=== PATIENT | female | born 1975 | race Hispanic/Latino ===

== ENCOUNTER 2017-07-09 09:34 | Outpatient (CLI) | payer OTHER ==
--- NOTE | 2017-07-09 11:56 | MRI ---
MRI LUMBAR SPINE NONCONTRAST: HISTORY: Low back pain. Radiculopathy. FINDINGS: The conus medullaris has a normal appearance. Bone marrow signal and vertebral body heights are main tained. There is desiccation of the lowest 2 intervertebral disks. T12-L1, L1-2, L2-3, L3-4: Thecal sac is patent. Neural foramina are within normal limits. L4-5: Diffuse posterior disk bulge is present. Thecal sac and neural foramen remain patent. L5-S1: Posterior disk bulge without central canal stenosis. Degenerative changes result in mild to moderate stenosis of the left neural foramen. IMPRESSION: Mild degenerative changes of the lower lumbar spine, with stenosis of the left neural foramen at the lumbosacral junction. Clinical correlation regarding the left L5 dermatome is required. POS: DAREN
== END 2017-07-09 09:35 | disposition home or self-care (01) ==
LOC: MRI 09:34
PROVIDERS: ATTEND Nurse Practitioner Family
DX: M54.5 Low back pain (principal); V89.2XXS Person injured in unspecified motor-vehicle accident, traffic, sequela; C73 Malignant neoplasm of thyroid gland; R59.0 Localized enlarged lymph nodes; M47.896 Other spondylosis, lumbar region; M99.53 Intervertebral disc stenosis of neural canal of lumbar region
CPT/HCPCS: 72148

== ENCOUNTER 2018-11-18 13:07 | Outpatient (CLI) | payer BC ==
--- NOTE | 2018-11-18 13:31 | RAD ---
EXAM: Chest Two Views 11/18/2018 1:28 PM HISTORY: History of ankylosing spondylitis COMPARISON: Prior exam dated May 11, 2009 and June 03, 2009 FINDINGS: Heart: Normal in size and contour. Pulmonary vessels: Normal. Costophrenic angles: Clear. Lungs: No confluent pneumonia, overt edema, pleural effusion, or other acute process. Pneumothorax: None. Osseous structures:There is stable ACDF plate involving the lower cervical spine. Mild thoracolumbar scoliosis. Additional findings: Cholecystectomy clips. IMPRESSION: No significant acute intrathoracic disease.
== END 2018-11-18 13:08 | disposition home or self-care (01) ==
LOC: BICRAD 13:07
PROVIDERS: ATTEND Internal Medicine Rheumatology
DX: M45.7 Ankylosing spondylitis of lumbosacral region (principal)
CPT/HCPCS: 71046

== ENCOUNTER 2019-01-30 19:03 | Inpatient (IN) | payer BC ==
[2019-01-30] MEDS ORDERED: HYDROcodone/Acetaminophen 5/325 mg Tablet ONE (20:18)
--- NOTE | 2019-01-30 20:35 | ULT ---
ULTRASOUND WITH DOPPLER DUPLEX VENOUS LOWER EXTREMITY LEFT 01/30/19 CPT: 57808 ICD-10-PCS: [id number] HISTORY: Left lower extremity erythema. Pain, edema. TECHNIQUE: Color flow Doppler, spectral waveform analysis of pulsed Doppler, and culp-scale imaging with chip shireen and augmentation, were used to evaluate the left common femoral, femoral, popliteal, posterior t ibial, and superficial femoral, veins; and the proximal portions of the profunda femoral and greater saphenous, veins. FINDINGS: There is appropriate compressibility and flow within the imaged deep venous system of the left lower extremity. IMPRESSION: No evidence of DVT within the visualized left lower extremity. POS: PREMAK
[2019-01-30 20:52] LABS: #Eosinphils 0.2 thou/uL (0.0-0.7); #Lymphocytes 2.3 thou/uL (1.20-3.40); #Monocytes 0.6 thou/uL (0.11-0.59); #Neutrophils 7.5 thou/uL (1.40-6.50); %Basophils 0.3 % (0.0-1.0); %Eosinophils 1.9 % (0.0-10.0); %Lymphocytes 21.4 % (21.0-51.0); %Monocytes 5.3 % (0.0-10.0); %Neutrophils 71.1 % (42.0-75.0); Hemoglobin 13.7 g/dL (12.0-16.0); Mean Corpuscular HGB CONC 33.7 g/dL (32.0-36.0); Mean Corpuscular Hemoglobin 31.5 pg (27.0-31.0); Mean Corpuscular Volume 93.4 fL (78.0-98.0); Platelet Count 249 thou/uL (130-400); RBC Distribution Width 12.6 % (11.5-14.5); Red Blood Cell (RBC) Count 4.35 mill/uL (4.20-5.40); White Blood Cell (WBC) Count 10.6 thou/uL (4.8-10.8)
[2019-01-30 21:10] LABS: ALT (SGPT) 81 U/L (8-55); AST (SGOT) 40 U/L (5-34); Alkaline Phosphatase 137 U/L (40-110); Anion Gap 14 mmol/L (10-20); BUN (Urea Nitrogen) 13 mg/dL (7.0-18.7); Bilirubin, Total 0.2 mg/dL (0.2-1.2); Calc. Creatinine Clearance 0 mL/min (70-130); Calcium 9.2 mg/dL (7.8-10.44); Carbon Dioxide 21 mmol/L (22-29); Chloride 104 mmol/L (98-107); Estimated GFR-MDRD 83; Globulin 4.1 g/dL (2.4-3.5); Glucose 100 mg/dL (70-105); Potassium 3.6 mmol/L (3.5-5.1); Protein, Total 8.1 g/dL (6.0-8.3); Sodium 135 mmol/L (136-145)
[2019-01-30] MEDS ORDERED: Piperacillin/Tazobactam 4.5 GM VIAL ONE (21:31)
[2019-01-30] MEDS ORDERED: Clindamycin/D5W 900 mg/50 ml Premix Bag ONE (21:31)
[2019-01-30] MEDS ORDERED: Vancomycin HCl 1.5 GM in Sodium Chloride 0.9% 250 ML 300 ML IVPB SCH (21:45)
[2019-01-30] MEDS ORDERED: HYDROcodone/Acetaminophen 5/325 mg Tablet PO PRN (22:48)
[2019-01-30] MEDS ORDERED: Senokot S 8.6-50 MG TAB PO PRN (22:48)
[2019-01-30 23:18] VITALS: BMI 31.2
[2019-01-30] MEDS: Sodium Chloride 0.9% 1,000 ML IV SCH (23:51)
[2019-01-31] MEDS: HYDROcodone/Acetaminophen 5/325 mg Tablet PO PRN ×3 (03:49→20:24)
[2019-01-31 05:02] LABS: #Basophils 0.1 thou/uL (0.0-0.2); #Eosinphils 0.2 thou/uL (0.0-0.7); #Lymphocytes 2.4 thou/uL (1.20-3.40); #Monocytes 0.7 thou/uL (0.11-0.59); #Neutrophils 4.9 thou/uL (1.40-6.50); %Basophils 0.8 % (0.0-1.0); %Eosinophils 2.7 % (0.0-10.0); %Lymphocytes 28.9 % (21.0-51.0); %Monocytes 8.1 % (0.0-10.0); %Neutrophils 59.6 % (42.0-75.0); Hemoglobin 11.5 g/dL (12.0-16.0); Mean Corpuscular HGB CONC 33.2 g/dL (32.0-36.0); Mean Corpuscular Volume 93.3 fL (78.0-98.0); Mean Platelet Volume 7.8 fL (7.4-10.4); Platelet Count 216 thou/uL (130-400); RBC Distribution Width 12.5 % (11.5-14.5); Red Blood Cell (RBC) Count 3.72 mill/uL (4.20-5.40); White Blood Cell (WBC) Count 8.2 thou/uL (4.8-10.8)
[2019-01-31] MEDS: Piperacillin/Tazobactam 4.5 GM in Sodium Chloride 0.9% 100 ML IVPB SCH ×4 (05:04→23:47)
[2019-01-31 05:28] LABS: ALT (SGPT) 60 U/L (8-55); AST (SGOT) 31 U/L (5-34); Albumin 3.2 g/dL (3.5-5.0); Alkaline Phosphatase 102 U/L (40-110); Anion Gap 9 mmol/L (10-20); BUN (Urea Nitrogen) 14 mg/dL (7.0-18.7); Bilirubin, Total Less than 0.2 mg/dL (0.2-1.2); Calc. Creatinine Clearance 131 mL/min (70-130); Calcium 8.1 mg/dL (7.8-10.44); Carbon Dioxide 21 mmol/L (22-29); Chloride 108 mmol/L (98-107); Estimated GFR-MDRD 87; Globulin 3.2 g/dL (2.4-3.5); Glucose 109 mg/dL (70-105); Potassium 3.2 mmol/L (3.5-5.1); Protein, Total 6.4 g/dL (6.0-8.3); Sodium 135 mmol/L (136-145)
[2019-01-31] MEDS: Sodium Chloride 0.9% 1,000 ML IV SCH ×2 (08:07→18:13)
[2019-01-31] MEDS: Famotidine 20 MG TAB PO SCH ×2 (08:07→20:24)
[2019-01-31] MEDS: Enoxaparin Sodium 40 MG/0.4 ML SYRINGE SC SCH (08:07)
[2019-01-31] MEDS: Ondansetron PF 4 MG/2 ML Vial IVP PRN (10:03)
[2019-01-31] MEDS: Vancomycin HCl 1.25 GM in Sodium Chloride 0.9% 250 ML 250 ML IVPB SCH ×2 (10:03→21:22)
--- NOTE | 2019-01-31 18:55 | PDOC.HOSPP ---
- Subjective Encounter Date: 01/31/19 Encounter Time: 10:20 Subjective: Pt seen for followup re: cellulitis. Says she feels slightly better. No fevers. - Objective Vital Signs & Weight: Vital Signs (12 hours) Temp Pulse Resp BP Pulse Ox 01/31/19 16:56 97.6 F 78 16 130/86 100 01/31/19 11:23 97.5 F L 84 16 103/68 97 01/31/19 08:00 97 01/31/19 07:35 97.9 F 81 16 100/65 97 Weight Weight 181 lb 14.4 oz I&O: 01/30/19 01/31/19 02/01/19 06:59 06:59 06:59 Intake Total 720 Balance 720 Result Diagrams: 01/31/19 04:51 01/31/19 04:51 Additional Labs: Labs and MARs reviewed by [place] Hospitalist ROS - Review of Systems Respiratory: denies: cough, dry, shortness of breath, hemoptysis, SOB with excertion, pleuritic pain, sputum, wheezing Cardiovascular: denies: chest pain, palpitations, orthopnea, paroxysmal noc. dyspnea, edema, light headedness Skin: reports: rash - Medication Medications: Active Medications Generic Name Dose Route Start Last Admin Trade Name Freq PRN Reason Stop Dose Admin Hydrocodone Bitart/Acetaminophen 1 tab 01/30/19 22:48 01/30/19 23:50 [place] 5/325 PO 1 tab Q4H PRN Administration Moderate Pain (4-6) Hydrocodone Bitart/Acetaminophen 2 tab 01/30/19 22:48 01/31/19 16:33 [place] 5/325 PO 2 tab Q4H PRN Administration Severe Pain (7-10) Enoxaparin Sodium 40 mg 01/31/19 09:00 01/31/19 08:07 Lovenox SC 40 mg 0900 ANTWON Administration Famotidine 20 mg 01/31/19 09:00 01/31/19 08:07 Pepcid PO 20 mg BID ANTWON Administration Piperacillin Sod/Tazobactam 100 mls @ 200 mls/hr 01/31/19 06:00 01/31/19 17: 22 Sod 4.5 gm/ Sodium Chloride IVPB 100 mls Q6HR ANTWON Administration Sodium Chloride 1,000 mls @ 100 mls/hr 01/30/19 23:00 10/05/19 18:13 Normal Saline 0.9% IV Not Given .Q10H ANTWON Vancomycin HCl 1.25 gm/ Sodium 250 mls @ 166.667 mls/hr 01/31/19 10:00 10:03 Chloride IVPB 250 mls 1000,2200 ANTWON Administration Ondansetron HCl 4 mg 01/31/19 09:53 01/31/19 10:03 Zofran IVP 4 mg Q6H PRN Administration Nausea/Vomiting - Exam General - other findings: Obese Eye: anicteric sclera ENT: moist mucosa Neck: supple Heart: RRR, no rubs Respiratory: CTAB, no wheezes Gastrointestinal: soft, non-tender Extremities: no cyanosis, no clubbing Skin - other findings: LLE cellulitis improving Musculoskeletal: normal tone, normal strength Psychiatric: normal affect, normal behavior Hosp A/P (1) Cellulitis of left lower extremity Code(s): L03.116 - CELLULITIS OF LEFT LOWER LIMB Status: Acute (2) Hyponatremia Code(s): E87.1 - HYPO-OSMOLALITY AND HYPONATREMIA Status: Acute (3) Hypokalemia Code(s): E87.6 - HYPOKALEMIA Status: Acute - Plan plan discussed w/ family, continue antibiotics, PT/OT, out of bed/ambulate Continue IV Zosyn and vancomycin. Replace potassium. Hyponatremia mild, likely asymptomatic.
[2019-01-31] MEDS ORDERED: Potassium Chloride 20 MEQ TAB PO SCH (19:00)
[2019-02-01] MEDS: Sodium Chloride 0.9% 1,000 ML IV SCH ×2 (04:28→17:34)
[2019-02-01] MEDS: Piperacillin/Tazobactam 4.5 GM in Sodium Chloride 0.9% 100 ML IVPB SCH ×4 (05:40→23:45)
[2019-02-01 09:28] LABS: Vancomycin, Trough 9.8 ug/mL
[2019-02-01] MEDS: Famotidine 20 MG TAB PO SCH ×2 (09:41→20:27)
[2019-02-01] MEDS: Enoxaparin Sodium 40 MG/0.4 ML SYRINGE SC SCH (09:42)
[2019-02-01] MEDS: Vancomycin HCl 1.25 GM in Sodium Chloride 0.9% 250 ML 250 ML IVPB SCH ×2 (09:43→21:04)
[2019-02-01] MEDS: Ondansetron PF 4 MG/2 ML Vial IVP PRN (10:00)
--- NOTE | 2019-02-01 13:32 | PDOC.HOSPP ---
- Subjective Encounter Date: 02/01/19 Encounter Time: 09:00 Subjective: Pt seen for followup re: cellulitis. feels better. Ambulating. - Objective Vital Signs & Weight: Vital Signs (12 hours) Temp Pulse Resp BP Pulse Ox 02/01/19 11:49 98.0 F 89 14 112/61 96 02/01/19 08:00 95 02/01/19 07:21 97.4 F L 79 17 148/94 H 95 02/01/19 07:16 98.5 F 81 16 106/64 96 02/01/19 04:00 98.2 F 79 16 90/60 96 Weight Weight 181 lb 14.4 oz I&O: 01/31/19 02/01/19 02/02/19 06:59 06:59 06:59 Intake Total 720 240 Balance 720 240 Result Diagrams: 01/31/19 04:51 01/31/19 04:51 Additional Labs: Labs and MARs reviewed by or Hospitalist ROS - Review of Systems Gastrointestinal: denies: nausea, vomiting, abdominal pain, diarrhea, constipation, melena, hematochezia Genitourinary: denies: dysuria, frequency, incontinence, hematuria, retention - Medication Medications: Active Medications Generic Name Dose Route Start Last Admin Trade Name Freq PRN Reason Stop Dose Admin Hydrocodone Bitart/Acetaminophen 1 tab 01/30/19 22:48 01/30/19 23:50 [place] 5/325 PO 1 tab Q4H PRN Administration Moderate Pain (4-6) Hydrocodone Bitart/Acetaminophen 2 tab 01/30/19 22:48 01/31/19 20:24 [place] 5/325 PO 2 tab Q4H PRN Administration Severe Pain (7-10) Enoxaparin Sodium 40 mg 01/31/19 09:00 02/01/19 09:42 Lovenox SC 40 mg 0900 ANTWON Administration Famotidine 20 mg 01/31/19 09:00 02/01/19 09:41 Pepcid PO Not Given BID ANTWON Piperacillin Sod/Tazobactam 100 mls @ 200 mls/hr 01/31/19 06:00 02/01/19 11: 32 Sod 4.5 gm/ Sodium Chloride IVPB 100 mls Q6HR ANTWON Administration Sodium Chloride 1,000 mls @ 100 mls/hr 01/30/19 23:00 02/01/19 04:28 Normal Saline 0.9% IV 1,000 mls .Q10H ANTWON Administration Vancomycin HCl 1.25 gm/ Sodium 250 mls @ 166.667 mls/hr 01/31/19 10:00 09:43 Chloride IVPB 250 mls 1000,2200 ANTWON Administration Ondansetron HCl 4 mg 01/31/19 09:53 02/01/19 10:00 Zofran IVP 4 mg Q6H PRN Administration Nausea/Vomiting - Exam General Appearance: awake alert General - other findings: Obese Eye: anicteric sclera ENT: moist mucosa Neck: supple, no thyromegaly, no lymphadenopathy Heart: RRR Respiratory: CTAB, no ronchi Gastrointestinal: soft, non-tender Skin - other findings: cellulitis improving Psychiatric: normal affect, normal behavior Hosp A/P (1) Cellulitis of left lower extremity Code(s): L03.116 - CELLULITIS OF LEFT LOWER LIMB Status: Acute (2) Hyponatremia Code(s): E87.1 - HYPO-OSMOLALITY AND HYPONATREMIA Status: Acute (3) Hypokalemia Code(s): E87.6 - HYPOKALEMIA Status: Acute - Plan continue antibiotics, out of bed/ambulate Pt is clinically improving, continue IV Zosyn and vancomycin. Check AM labs
[2019-02-02 05:02] LABS: #Basophils 0.1 thou/uL (0.0-0.2); #Eosinphils 0.2 thou/uL (0.0-0.7); #Lymphocytes 2.7 thou/uL (1.20-3.40); #Monocytes 0.5 thou/uL (0.11-0.59); #Neutrophils 2.7 thou/uL (1.40-6.50); %Basophils 1.2 % (0.0-1.0); %Eosinophils 3.5 % (0.0-10.0); %Monocytes 7.7 % (0.0-10.0); %Neutrophils 43.6 % (42.0-75.0); Mean Corpuscular HGB CONC 34.1 g/dL (32.0-36.0); Mean Corpuscular Hemoglobin 31.6 pg (27.0-31.0); Mean Corpuscular Volume 92.7 fL (78.0-98.0); Mean Platelet Volume 7.6 fL (7.4-10.4); Platelet Count 273 thou/uL (130-400); RBC Distribution Width 12.3 % (11.5-14.5); White Blood Cell (WBC) Count 6.2 thou/uL (4.8-10.8)
[2019-02-02] MEDS: Piperacillin/Tazobactam 4.5 GM in Sodium Chloride 0.9% 100 ML IVPB SCH ×2 (05:16→12:10)
[2019-02-02 05:20] LABS: Anion Gap 11 mmol/L (10-20); BUN (Urea Nitrogen) 7 mg/dL (7.0-18.7); Calc. Creatinine Clearance 145 mL/min (70-130); Calcium 8.7 mg/dL (7.8-10.44); Carbon Dioxide 22 mmol/L (22-29); Chloride 107 mmol/L (98-107); Estimated GFR-MDRD Greater than 90; Glucose 87 mg/dL (70-105); Potassium 3.8 mmol/L (3.5-5.1); Sodium 136 mmol/L (136-145)
[2019-02-02] MEDS: Sodium Chloride 0.9% 1,000 ML IV SCH ×3 (05:35→20:24)
[2019-02-02] MEDS: Vancomycin HCl 1 GM in Premix Bag 1 BAG IVPB SCH ×2 (06:15→14:09)
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
[2019-02-02] MEDS: Enoxaparin Sodium 40 MG/0.4 ML SYRINGE SC SCH (08:31)
[2019-02-02] MEDS: Famotidine 20 MG TAB PO SCH ×2 (08:31→20:21)
[2019-02-02] MEDS ORDERED: cefTRIAXone\\ROCEPHIN 1 GM in Sodium Chloride 0.9% 100 ML IVPB SCH (16:00)
--- NOTE | 2019-02-02 18:10 | PDOC.HOSPP ---
- Subjective Encounter Date: 02/02/19 Encounter Time: 07:40 Subjective: Pt seen for followup re: cellulitis. Feels better. - Objective Vital Signs & Weight: Vital Signs (12 hours) Temp Pulse Resp BP Pulse Ox 02/02/19 08:37 98.5 F 81 16 111/69 96 02/02/19 08:00 96 Weight Weight 181 lb 14.4 oz I&O: 02/01/19 02/02/19 02/03/19 06:59 06:59 06:59 Intake Total 954 766 0973 Balance 628 917 9136 Result Diagrams: 02/02/19 04:13 02/02/19 04:13 Additional Labs: Labs and MARs reviewed by [facility] Hospitalist ROS - Review of Systems Cardiovascular: denies: chest pain, palpitations, orthopnea, paroxysmal noc. dyspnea, edema, light headedness Gastrointestinal: denies: nausea, vomiting, abdominal pain, diarrhea, constipation, melena, hematochezia Skin: reports: rash - Medication Medications: Active Medications Generic Name Dose Route Start Last Admin Trade Name Freq PRN Reason Stop Dose Admin Hydrocodone Bitart/Acetaminophen 1 tab 01/30/19 22:48 01/30/19 23:50 [place] 5/325 PO 1 tab Q4H PRN Administration Moderate Pain (4-6) Hydrocodone Bitart/Acetaminophen 2 tab 01/30/19 22:48 01/31/19 20:24 [place] 5/325 PO 2 tab Q4H PRN Administration Severe Pain (7-10) Enoxaparin Sodium 40 mg 01/31/19 09:00 02/02/19 08:31 Lovenox SC 40 mg 0900 ANTWON Administration Famotidine 20 mg 01/31/19 09:00 02/02/19 08:31 Pepcid PO 20 mg BID ANTWON Administration Sodium Chloride 1,000 mls @ 100 mls/hr 01/30/19 23:00 02/02/19 11:25 Normal Saline 0.9% IV 1,000 mls .Q10H ANTWON Administration Ceftriaxone Sodium 1 gm/ 100 mls @ 200 mls/hr 02/02/19 16:00 02/02/19 16:14 Sodium Chloride IVPB 100 mls Q24HR ANTWON Administration Ondansetron HCl 4 mg 01/31/19 09:53 02/01/19 10:00 Zofran IVP 4 mg Q6H PRN Administration Nausea/Vomiting - Exam General - other findings: Obese Eye: anicteric sclera ENT: moist mucosa Neck: supple, no JVD Heart: RRR, no rubs Respiratory: CTAB, normal chest expansion Gastrointestinal: soft, non-tender Extremities: no clubbing Skin - other findings: LLE cellulitis improved Psychiatric: normal affect, normal behavior Hosp A/P (1) Cellulitis of left lower extremity Code(s): L03.116 - CELLULITIS OF LEFT LOWER LIMB Status: Acute (2) Hyponatremia Code(s): E87.1 - HYPO-OSMOLALITY AND HYPONATREMIA Status: Resolved (3) Hypokalemia Code(s): E87.6 - HYPOKALEMIA Status: Resolved - Plan continue antibiotics, out of bed/ambulate Pt is clinically improving, consult ID for recurrent cellulitis.
[2019-02-02] MEDS: Acetaminophen 325 MG TAB PO PRN (20:23)
[2019-02-02] MEDS ORDERED: diphenhydrAMINE 25 MG CAP PO PRN (21:42)
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
[2019-02-03 05:20] LABS: #Basophils 0.1 thou/uL (0.0-0.2); #Eosinphils 0.2 thou/uL (0.0-0.7); #Lymphocytes 3.5 thou/uL (1.20-3.40); #Monocytes 0.7 thou/uL (0.11-0.59); #Neutrophils 3.2 thou/uL (1.40-6.50); %Basophils 1.1 % (0.0-1.0); %Eosinophils 2.9 % (0.0-10.0); %Lymphocytes 45.2 % (21.0-51.0); %Monocytes 8.5 % (0.0-10.0); %Neutrophils 42.2 % (42.0-75.0); Hemoglobin 12.2 g/dL (12.0-16.0); Mean Corpuscular HGB CONC 33.9 g/dL (32.0-36.0); Mean Corpuscular Hemoglobin 31.3 pg (27.0-31.0); Mean Corpuscular Volume 92.3 fL (78.0-98.0); Mean Platelet Volume 7.5 fL (7.4-10.4); Platelet Count 292 thou/uL (130-400); RBC Distribution Width 12.3 % (11.5-14.5); White Blood Cell (WBC) Count 7.7 thou/uL (4.8-10.8)
[2019-02-03 05:45] LABS: Anion Gap 12 mmol/L (10-20); BUN (Urea Nitrogen) 11 mg/dL (7.0-18.7); Calc. Creatinine Clearance 145 mL/min (70-130); Calcium 8.9 mg/dL (7.8-10.44); Carbon Dioxide 23 mmol/L (22-29); Chloride 106 mmol/L (98-107); Estimated GFR-MDRD Greater than 90; Glucose 86 mg/dL (70-105); Potassium 3.9 mmol/L (3.5-5.1); Sodium 137 mmol/L (136-145)
[2019-02-03] MEDS: Famotidine 20 MG TAB PO SCH (08:14)
[2019-02-03] MEDS: Enoxaparin Sodium 40 MG/0.4 ML SYRINGE SC SCH (08:15)
[2019-02-03] MEDS ORDERED: Cephalexin 250 MG CAP PO SCH (12:00)
[2019-02-03] MEDS: Acetaminophen 325 MG TAB PO PRN (12:28)
[2019-02-03 13:38] VITALS: BP 113/76; TEMP 98.7
--- NOTE | 2019-02-03 23:00 | DIS ---
DATE OF ADMISSION: 01/30/2019 DATE OF DISCHARGE: 02/03/2019 PRIMARY CARE PROVIDER: None. DISCHARGE DIAGNOSES: 1. Left lower extremity cellulitis. 2. Hyponatremia. 3. Hypokalemia. CONDITION OF PATIENT ON THE DAY OF DISCHARGE: Stable. I assessed Ms. Ivan Bush on the day of discharge. She denies any chest pain or shortness of breath. Vital signs are stable. S1 and S2 are heard, regular. Lungs are clear to auscultation bilaterally. DISCHARGE MEDICATIONS: Cephalexin 500 mg every 6 hours for 10 days followed by penicillin V potassium 250 mg 2 times a day for 1 year. FOLLOWUP APPOINTMENTS: The patient is advised to follow up with Infectious Diseases Service, as well as with primary care provider after establishing care with primary care provider. CONSULTATIONS DURING THIS HOSPITALIZATION: Infectious Diseases, Dr. Gorman. HOSPITAL COURSE: Ms. Ivan Bush is a pleasant 43-year-old lady, who was admitted to [facility] on January 30, 2019, for recurrent left lower extremity cellulitis. Please refer to Ms. Peng's history and physical note dated January 31, 2019, for further details. She was treated with intravenous antibiotics with improvement in her symptoms. She was seen by Infectious Diseases Service for recurrent left lower extremity cellulitis. She has been advised to complete a course of Keflex followed by penicillin VK 250 mg 2 times a day for 1 year. Many thanks for allowing me to participate in your patient's care. Please feel free to contact me with any questions or concerns. DISCHARGE DESTINATION: Home. TIME SPENT: Total amount of time spent coordinating this discharge: 32 minutes. Job ID: [id number]
== END 2019-02-03 13:45 | disposition home or self-care (01) | DRG 603 ==
LOC: ERS 19:03 → T4-A 23:16
PROVIDERS: ADMIT Hospitalist; ATTEND Hospitalist
DX: L03.116 Cellulitis of left lower limb (principal); E87.1 Hypo-osmolality and hyponatremia; M45.9 Ankylosing spondylitis of unspecified sites in spine; E87.6 Hypokalemia
CPT/HCPCS: 36415; 80048; 80053; 80202; 85025; 86140; 87040; 96365; 96367; 96368; J0696; J1650; J2405; J2543; J3370; J3490; J7050; Q0163

== ENCOUNTER 2021-01-30 08:49 | Outpatient (CLI) | payer BC | END 2021-01-30 08:50 | disposition home or self-care (01) | LOC: TBSIIMAG 08:49 | PROVIDERS: ATTEND Specialist | DX: M51.16 Intervertebral disc disorders with radiculopathy, lumbar region (principal); M47.26 Other spondylosis with radiculopathy, lumbar region; M48.061 Spinal stenosis, lumbar region without neurogenic claudication; M48.07 Spinal stenosis, lumbosacral region; M51.37 Other intervertebral disc degeneration, lumbosacral region | CPT/HCPCS: 72148 ==

== ENCOUNTER 2021-05-23 11:33 | Outpatient (CLI) | payer BC | END 2021-05-23 11:34 | disposition home or self-care (01) | LOC: BICULT 11:33 | PROVIDERS: ATTEND Family Medicine | DX: R10.2 Pelvic and perineal pain (principal); R93.89 Abnormal findings on diagnostic imaging of other specified body structures; Z87.42 Personal history of other diseases of the female genital tract | CPT/HCPCS: 76856 ==

== ENCOUNTER 2021-12-01 13:57 | Outpatient (CLI) | payer BC | END 2021-12-01 13:58 | disposition home or self-care (01) | LOC: BICMAMMO 13:57 | PROVIDERS: ATTEND Family Medicine | DX: R92.8 Other abnormal and inconclusive findings on diagnostic imaging of breast (principal) | CPT/HCPCS: 77066; G0279 ==

== ENCOUNTER 2021-12-26 15:14 | Outpatient (CLI) | payer BC ==
[2021-12-26 16:13] LABS: #Basophils 0.1 10x3/uL (0.0-0.2); #Eosinphils 0.1 10x3/uL (0.0-0.5); #Monocytes 0.5 10x3/uL (0.0-1.1); #Neutrophils 3.9 10x3/uL (1.5-8.4); %Eosinophils 1.7 % (0.0-6.0); %Lymphocytes 36.2 % (18.0-47.0); %Monocytes 7.1 % (0.0-10.0); %Neutrophils 53.7 % (40.0-75.0); Hemoglobin 12.2 g/dL (12.0-15.5); Mean Corpuscular HGB CONC 32.7 g/dL (32.0-36.0); Mean Corpuscular Hemoglobin 29.6 pg (27.0-33.0); Mean Corpuscular Volume 90.5 fl (81.6-98.3); Mean Platelet Volume 10.5 fl (7.4-10.4); Platelet Count 340 10x3/uL (150-450); RBC Distribution Width 13.8 % (11.5-14.5); Red Blood Cell (RBC) Count 4.12 10x6/uL (3.90-5.03); White Blood Cell (WBC) Count 7.2 10x3/uL (3.5-10.5)
[2021-12-26 16:21] LABS: BHCG - Serum Negative (NEGATIVE); Pregs Control Background? CLEAR/WHITE (CLR/WHITE); Pregs Control Bar Appear? YES (CONTROL BAR)
== END 2021-12-26 15:15 | disposition home or self-care (01) ==
LOC: LABBT 15:14
PROVIDERS: ATTEND Orthopaedic Surgery
DX: Z01.812 Encounter for preprocedural laboratory examination (principal); M77.11 Lateral epicondylitis, right elbow; Z20.822 Contact with and (suspected) exposure to COVID-19
CPT/HCPCS: 84703; 85025; 87811

== ENCOUNTER 2021-12-28 09:02 | Day surgery (SDC) | payer BC ==
[2021-12-28] MEDS ORDERED: Fentanyl 100 MCG/2 ML VIAL ONE (11:17)
[2021-12-28] MEDS ORDERED: Midazolam HCl 2 mg/2 ml Vial ONE ×2 (11:17→12:10)
[2021-12-28] MEDS ORDERED: fentaNYL Citrate/PF 100 MCG/2 ML SYRINGE ONE ×2 (12:10→13:54)
[2021-12-28] MEDS ORDERED: Bupivacaine/Epinephrine 0.25% 30 ML VIAL ONE (12:20)
[2021-12-28] MEDS ORDERED: CEFAZOLIN 2 GM VIAL ONE (12:31)
[2021-12-28] MEDS ORDERED: Sodium Chloride 0.9% 100 ML ONE (12:31)
[2021-12-28] MEDS ORDERED: SUGAMMADEX SODIUM 200 MG/2 ML VIAL ONE (13:11)
[2021-12-28] MEDS ORDERED: HYDROcodone/Acetaminophen 5/325 mg Tablet ONE (14:40)
== END 2021-12-28 15:19 | disposition home or self-care (01) ==
LOC: SDC 09:02
PROVIDERS: ATTEND Orthopaedic Surgery
PROC: 0LN30ZZ Release Right Upper Arm Tendon, Open Approach (ICD-10-PCS; principal; 2021-12-28)
PROC: 0PBF0ZZ Excision of Right Humeral Shaft, Open Approach (ICD-10-PCS; principal; 2021-12-28)
PROC: 0KC90ZZ Extirpation of Matter from Right Lower Arm and Wrist Muscle, Open Approach (ICD-10-PCS; principal; 2021-12-28)
DX: M77.11 Lateral epicondylitis, right elbow (principal); M79.5 Residual foreign body in soft tissue; G56.03 Carpal tunnel syndrome, bilateral upper limbs; G56.21 Lesion of ulnar nerve, right upper limb; M45.9 Ankylosing spondylitis of unspecified sites in spine; Z79.899 Other long term (current) drug therapy
CPT/HCPCS: J0690; J2250; J3010; J3490